=== PATIENT | male | born 1975 | race Caucasian/White ===

== ENCOUNTER 2022-12-16 13:09 | Outpatient (OUT) | payer OTHER, SELFPAY ==
--- NOTE | 2022-12-16 13:25 | XR_ITS ---
The [place] [id number] Patient Name: JENNA BARRERA MRN: [id number] date: 1975 Sex: M Assigned Patient Location: [facility] Current Patient Location: [facility] Accession/Order Number: [id number] Exam Date: 12/16/2022 13:35 Report Date: 12/16/2022 13:56 At the request of: RUSTY BURR Procedure: XR ankle LT min 3V PROCEDURE: XR ankle LT min 3V HISTORY: Left Ankle Injury left ankle and lower leg pain and hematoma after stepping in a hole. COMPARISON: None. FINDINGS: BONES:No fracture, acute abnormality, or significant arthropathy. SOFT TISSUES:Moderate lateral soft tissue swelling. EFFUSION:None visible. OTHER: Negative. IMPRESSION: 1. No acute bone abnormality. 2. Lateral swelling suggesting soft tissue injury. Electronically authenticated by: LYNNE GONZALEZ Date: 12/16/2022 13:56
--- NOTE | 2022-12-16 13:27 | XR_ITS ---
The [address] [address] Patient Name: JENNA BARRERA MRN: [id number] date: 1975 Sex: M Assigned Patient Location: [facility] Current Patient Location: [facility] Accession/Order Number: [id number] Exam Date: 12/16/2022 13:35 Report Date: 12/16/2022 14:02 At the request of: RUSTY BURR Procedure: XR tibia fibula LT 2V PROCEDURE: XR tibia fibula LT 2V HISTORY: Left Ankle Injury COMPARISON: None. FINDINGS: BONES:No fracture, acute abnormality, or significant arthropathy. SOFT TISSUES:Prominent soft tissue swelling lateral to the ankle. EFFUSION:None visible. OTHER: Negative. IMPRESSION: 1. Swelling lateral to the left ankle suggesting soft tissue injury. 2. No acute bone abnormality. Electronically authenticated by: LYNNE GONZALEZ Date: 12/16/2022 14:02
== END 2022-12-16 13:10 ==
PROVIDERS: Visit Provider Nurse Practitioner Family
DX: S99.912A Unspecified injury of left ankle, initial encounter (principal)
CPT/HCPCS: 73590; 73610

== ENCOUNTER 2022-12-31 10:12 | Outpatient (OUT) | payer OTHER, SELFPAY ==
--- NOTE | 2022-12-31 10:22 | MR_ITS ---
The [place] [id number] Patient Name: JENNA BARRERA MRN: [id number] date: 1975 Sex: M Assigned Patient Location: [facility] Current Patient Location: [facility] Accession/Order Number: [id number] Exam Date: 12/31/2022 10:45 Report Date: 12/31/2022 12:53 At the request of: RUSTY BURR Procedure: MR ankle LT wo con EXAM: MR ankle LT wo con HISTORY: Left ankle sprain S93.402A COMPARISON: Left ankle MRI 12/16/2022. TECHNIQUE: Multi planar, multisequence MR imaging of the left ankle without contrast Findings: Bones and cartilage: No acute fracture or malalignment. No focal bone marrow edema. No articular erosions. No osteochondral abnormality. Muscles and tendons: No abnormal signal within the visualized musculature. The Achilles, anterior, medial and lateral tendons about the ankle are intact. No significant tendinosis or tenosynovitis. Ligaments: The medial and lateral ligaments about the ankle are intact. The Lisfranc ligament is intact. Fat signal persist within the sinus Tarsi. Miscellaneous: No joint effusion. The plantar fascia is not thickened. Within the subcutaneous fat of the lateral ankle caudal to the lateral malleolus is a T1 and T2 hyperintense focal fluid collection measuring approximately 3.3 x 0.7 x 1.8 cm and likely representing a hematoma. IMPRESSION: 1. Subcutaneous hematoma about the lateral aspect of the ankle. 2. No acute fracture or malalignment. Electronically authenticated by: TATYANA GRAHAM Date: 12/31/2022 12:53
== END 2022-12-31 10:13 ==
LOC: RAD 10:12
PROVIDERS: Visit Provider Nurse Practitioner Family
DX: S93.402A Sprain of unspecified ligament of left ankle, initial encounter (principal)
CPT/HCPCS: 73721

== ENCOUNTER 2023-01-27 06:50 | Outpatient (RCR) | payer OTHER, SELFPAY | END 2023-02-05 13:28 | disposition home or self-care (01) | LOC: PT 06:50 | PROVIDERS: Visit Provider Nurse Practitioner Family | DX: S93.402D Sprain of unspecified ligament of left ankle, subsequent encounter (principal) | CPT/HCPCS: 97010; 97110; 97112; 97161 ==

== ENCOUNTER 2023-08-25 13:24 | Outpatient (OUT) | payer OTHER, SELFPAY ==
--- NOTE | 2023-08-25 | XR_ITS ---
[address] [address] Patient Name: JENNA BARRERA MRN: [id number] date: 1975 Sex: M Assigned Patient Location: [facility] Current Patient Location: [facility] Accession/Order Number: [id number] Exam Date: 08/25/2023 13:35 Report Date: 08/25/2023 14:40 At the request of: MANOJ SINGH Procedure: XR ankle LT min 3V PROCEDURE: XR ankle LT min 3V COMPARISON: 12/16/2022 HISTORY: LEFT ANKLE PAIN FINDINGS: BONES:No fracture, acute abnormality, or significant arthropathy. SOFT TISSUES:Negative. No visible soft tissue swelling. EFFUSION:None visible. OTHER: Negative. XR/XR ankle LT min 3V IMPRESSION: No acute radiographic abnormality Electronically authenticated by: [place] ANNA Date: 08/25/2023 14:40
== END 2023-08-25 13:25 | disposition home or self-care (01) ==
LOC: RAD 13:25
PROVIDERS: Visit Provider Podiatrist Foot & Ankle Surgery
DX: S93.402A Sprain of unspecified ligament of left ankle, initial encounter (principal)
CPT/HCPCS: 73610

== ENCOUNTER 2023-09-03 14:20 | Outpatient (OUT) | payer OTHER, SELFPAY ==
--- NOTE | 2023-09-03 14:27 | MR_ITS ---
The [address] [address] Patient Name: JENNA BARRERA MRN: [id number] date: 1975 Sex: M Assigned Patient Location: MRI Current Patient Location: MRI Accession/Order Number: [id number] Exam Date: 09/03/2023 14:45 Report Date: 09/04/2023 13:23 At the request of: DAMIAN WATKINS Procedure: MR ankle LT wo con HISTORY: Pain along the posterior and lateral aspect of the left ankle since an injury on 12/16/2022. Sprain of left ankle. MR ankle LT wo con: 09/03/2023 2:45 PM EST COMPARISON: MRI left ankle 12/31/2022 and radiographs left ankle 08/25/2023. TECHNIQUE: Multiplanar, multisequence MRI images of the ankle were obtained without contrast. FINDINGS: A few images are slightly degraded by motion artifact. LIGAMENTS: The anterior talofibular ligament appears thickened and of low signal intensity. The calcaneofibular ligament also appears thickened and of low signal intensity. The posterior talofibular ligament and distal tibiofibular ligaments appear within normal limits. The deltoid ligament complex appears within normal limits. TENDONS: No significant tendinopathy, tendon tear, or tenosynovitis is seen. SINUS TARSI AND TARSAL TUNNEL: No space-occupying mass is seen in the tarsal tunnel or the sinus tarsi. BONES AND JOINTS: The bone marrow signal intensity is age appropriate. No unstable osteochondral defect of the tibiotalar joint is identified. PLANTAR FASCIA: There is no abnormal thickening or abnormal signal intensity of the plantar fascia and there is no surrounding soft tissue edema to suggest plantar fasciitis. SOFT TISSUES: There has been resolution of the soft tissue hematoma and soft tissue swelling previously seen along the lateral aspect of the ankle since the prior MRI. MR/MR ankle LT wo con IMPRESSION: 1. No acute abnormality of the ankle is seen. 2. There is evidence of the sequela of prior grade 2-3 sprains and subsequent scarring in the region of the anterior talofibular ligament and calcaneofibular ligament. Electronically authenticated by: KRISTAL RODRIGUEZ Date: 09/04/2023 13:23
--- OUTSIDE RECORDS SUMMARY | 2023-09-03 14:30 | XMS_ITS | CCD ---
Author Name Unknown Address [address] [place] [address] Organization [facility] Care Team Providers Care Rope Maker Name Role Phone LLOYD Lujan Attending Provider [phone] Katie Lujan Attending Unavailable Katie Lujan Admitting Unavailable Katie Lujan Unavailable Medications Current Medications Medication Drug Class(es) Dates Sig (Normalized) Sig (Original) phenazopyridine hydrochloride 200 mg oral tablet (3 sources) Start: 06-29-2023 take 1 tablet by mouth every eight hours Pyridium 200 MG 1 tablet after meals Orally Three times a day for 2 day(s) Jun, Active tamsulosin hydrochloride 0.4 mg oral capsule (3 sources) alpha-Adrenergic Fercho Start: 06-29-2023 take 1 capsule by mouth once daily Flomax 0.4 MG 1 capsule, take 30 min after same meal Orally Once a day for 7 days Jun, Active Problems Problem Classification Problem Date Documented Da te Episodic/Chronic Genitourinary symptoms and ill-defined conditions (2 sources) Dysuria; Translations: [Frequency of micturition] Episodic Unclassified (1 source) Frequency of micturition; Translations: [Frequency of micturition] Onset: 06-29-2023 Results Test Name Value Interpretation Reference Range Facil ity Urinalysis - AUTOMATEDon Appearance (U) clear [employer] Other Bilirubin Ql (U) Negative [employer] Other Color (U) yellow [facility] Other Glucose Ql (U) Negative [employer] Other Hemoglobin Ql (U) Negative [employer] Other Ketones Ql (U) Negative [employer] Other Leukocyte esterase Test strip Ql (U) Negative [facility] Other Nitrite Ql (U) Negative [employer] Other pH (U) 5.5 [pH] [facility] Other Protein Ql (U) Negative [employer] Other Specific gravity (U) [Rel density] 1.020 [facility] Other Urobilinogen (U) [Mass/Vol] 0.2 mg/dL [facility] Other Urinalysis - AUTOMATED [facility] Other Urine Cultureon 06-29-2023 Bacteria identified Cx Nom (U) No Growth 2 Days PERFORMED BY: [place] [address] PATHOLOGIST BUDGET AND POLICY ANALYST ALISSA MODI M.D. [facility] Comment on above: Performed By: #### C UU #### [address] Vital Signs Date Time Vital Sign Value Performing Clinician Facility 06-29-2023 17:45-0500 Body temperature 98.2 [degF] Katie Lujan Other [facility] Other 06-29-2023 17:45-0500 Body weight 104.33 kg Katie Lujan Other [facility] Other 06-29-2023 17:45-0500 Diastolic blood pressure 93 mm[Hg] Katie Lujan Other [facility] Other 06-29-2023 17:45-0500 Respiratory rate 18 /min Katie Lujan Other [facility] Other 06-29-2023 17:45-0500 SaO2% (BldA) [Mass fraction] 98 % Katie Lujan Other [facility] Other 06-29-2023 17:45-0500 Systolic blood pressure 141 mm[Hg] Katie Lujan Other [facility] Other Encounters Encounter Date Encounter Type Care Provider Facility Start: 07-15-2023 End: 07-15-2023 ambulatory Katie Lujan Other [facility] Other Start: 07-15-2023 Telephone encounter Katie Lujan [facility] Start: 07-02-2023 End: 07-02-2023 ambulatory Facility:[facility] Start: 07-02-2023 Telephone encounter Katie Lujan [facility] Start: 06-29-2023 End: 06-29-2023 ambulatory Katie Lujan Facility:[facility] Start: 06-29-2023 End: 06-29-2023 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 Katie Lujan Work Phone: [facility] [place] Work Phone: Start: 06-29-2023 End: 06-29-2023 ambulatory Katie Lujan Other [facility] Other Start: 06-29-2023 Office outpatient ne w 20 minutes Katie Lujan [facility] [place] Plan of Treatment Date Care Activity Detail Author Start: 06-29-2023 Bacteria identified in Urine by Culture [facility] Payers Date Payer Category Payer [facility] [id number] 2023 Self-pay 2023 Unknown [id number] Unknown [id number] Social History Date Type Detail Facility Tobacco smoking status NHIS Unknown if ever smoked [facility] Other Start: 1975 Sex Assigned At Male F [facility] Sex Assigned At Sex Assigned At Bir th [facility] Other Evaluation note 06-29-2023 Note Date & Type Note Facility 06-29-2023 Evaluation note Encounter Date Diagnosis Assessment Notes Jun, Dysuria (ICD-10 - R30.0) Jun, Urinary frequency (ICD-10 - R35.0) urine cx is low suspicion for infection, will send for cx to r/o UTI and contact pt with results. pt is low risk for STIs and declines STI testing today. clinical presentation is suspicious of prostate pathology, differentials include BPH or prostatitis. pt does not appear acutely ill. he does have a history of prostatitis in his remote past, but denies any similar symptoms today. I will start treatment with flomax and pyridium and refer to urology for further evaluation. pt should continue to push fluids. advised pt to seek immediate evaluation if he experiences any fevers, worsening abdominal pain, inability to urinate, or other emergent symptoms. [facility] Other Evaluation note Note Date & Type Note Facility Evaluation note [facility]: Evaluation note Note Date & Type Note Facility Evaluation note No Information Located Within [facility] [employer] Other Reason for Referral Reason *FU 07/07 Question able BPH versus Prostatitis Diagnosis 1 Urinary frequency (R 35.0) Referral Organization [facility] Referring Provider First Name Katie Referring Provider Last Name Lujan Referring Provider Specialty Nurse Pract itioner Referred Organization [facility] Referred Provider Ayan Lucas Referred Address [address],[place], [place],[address] Referred Provider Specialty Urology Referral Priority Routine General Notes Vikram Medina 06/30 09:40:25 AM > Referral received, attachments made and referral faxed to Dr. Lucas are [facility]. Summary Purpose Family History No Family History Records FoundNo Family History Records Found Advance Directives No Advanced Directives Records FoundNo Advanced Directives Records Found Additional Source Comments Care Teams (unrecognized sec tion and content) Team Status: Inactive Member Role Status Dates Katie Lujan NP Attending Provider Active Goals (unrecognized section and content) Goals may be documented in a n alternate sectionNo InformationNo InformationNo Information REASON FOR VISIT (unrecogniz ed section and content) POSSIBLE UTINo InformationUR OLOGY REFERRAL UPDATE (unrecognized sect ion and content) No Status Records FoundNo Status Records Found INFORMATION SOURCE (unrecogn ized section and content) DATE CREATED AUTHOR 07/03/2023 [facility] DATE CREATED AUTHOR AUTHOR'S ORGANIZ ATION 07/05/2023 [facility] FOR RECORDS PERTAINING TO PATIENTS WHO ARE OR HAVE BEEN ENROLLED IN A CHEMICAL DEPENDENCY/SUBSTANCEABUSE PROGRAM, SOME INFORMATION MAY BE OMITTED. This clinical summary was aggregated from multiple sources. Caution should be exercised in using it in the provision of clinical care. This summary normalizes information from multiple sources, and as a consequence, information in this document may materially change the coding, format and clinical context of patient data. In addition, data may be omitted in some cases. CLINICAL DECISIONS SHOULD BE BASED ON THE PRIMARY CLINICAL RECORDS. [email or web address] [facility]. provides no warranty or guarantee of the accuracy or completeness of information in this document.
== END 2023-09-03 14:21 | disposition home or self-care (01) ==
LOC: MRI 14:21
PROVIDERS: Visit Provider Physician Assistant
DX: S93.402A Sprain of unspecified ligament of left ankle, initial encounter (principal)
CPT/HCPCS: 73721

== ENCOUNTER 2024-07-12 12:22 | Outpatient (OUT) | payer OTHER, SELFPAY ==
--- NOTE | 2024-07-12 12:29 | ECG_ITS ---
The [facility] Test Date: 2024-07-12 Pat Name: JENNA BARRERA Department: Room: - Gender: Male Internal Medicine Nurse: : 1975 Requested By: MANOJ SINGH Order Number: [id number] Reading MD: JESSU WHITTINGTON Measurements Intervals [place] Rate: 95 P: 48 WA: 165 QRS: 17 QRSD: 113 T: 47 QT: 341 QTc: 430 Interpretive Statements SINUS RHYTHM MODERATE INTRAVENTRICULAR CONDUCTION DELAY [110+ ms QRS DURATION] No previous ECG available for comparison Electronically Signed On 07-12-2024 14:56:38 EST by JESUS WHITTINGTON
--- OUTSIDE RECORDS SUMMARY | 2024-07-12 12:37 | XMS_ITS | CCD ---
Author Organization [facility] Care Team Providers Care Palaeontologist Name Role Phone LLOYD Lujan Attending Provider Katie Lujan Attending Unavailable Katie Lujan Admitting [...] ity Urinalysis - AUTOMATEDon Appearance (U) clear [email or web address] Other Bilirubin Ql (U) Negative [employer] Other Color (U) yellow [facility] Other Glucose Ql (U) Negative [email or web address] Other Hemoglobin Ql (U) Negative [employer]clo Other Ketones Ql (U) Negative [email or web address] Other Leukocyte esterase Test strip Ql (U) Negative [facility] Other Nitrite Ql (U) Negative [email or web address] Other pH (U) 5.5 [pH] [facility] Other Protein Ql (U) Negative [email or web address] Other Specific gravity (U) [Rel density] 1.020 [facility] Other Urobilinogen (U) [Mass/Vol] 0.2 mg/dL [facility] Other Urinalysis - AUTOMATED [facility] Other Urine Cultureon 06-29-2023 Bacteria identified Cx Nom (U) No Growth 2 Days PERFORMED BY: [place] [address] PATHOLOGIST SPAGHETTI PRESS HELPER ALISSA MODI M.D. [facility] Comment on above: Performed By: #### C UU #### [facility] [address] [place] [address] Vital Signs Date Time Vital Sign Value Performing Clinician Facility 06-29-2023 17:45-0500 Body temperature 98.2 [degF] Katie Uljan Other [facility] Other 06-29-2023 17:45-0500 Body weight 104.33 kg Katie Lujan Other [facility] Other 06-29-2023 17:45-0500 Diastolic blood pressure 93 mm[Hg] Katie Lujan Other [facility] Other 06-29-2023 17:45-0500 Respiratory rate 18 /min Katie Lujan Other [facility] Other 06-29-2023 17:45-0500 SaO2% (BldA) [Mass fraction] 98 % Katie Lujan Other [facility] Other 06-29-2023 17:45-0500 Systolic blood pressure 141 mm[Hg] Katie Lujan Other [facility] Other Encounters Encounter Date Encounter Type Care Provider Facility Start: 07-15-2023 End: 07-15-2023 ambulatory Katie Lujan Other [facility] Other Start: 07-15-2023 Telephone encounter Katie Lujan [facility] Start: 07-02-2023 End: 07-02-2023 ambulatory Facility:[facility] Start: 07-02-2023 Telephone encounter Katie Lujan [facility] [address] Start: 06-29-2023 End: 06-29-2023 ambulatory Katie Lujan Facility:[facility] Start: 06-29-2023 End: 06-29-2023 Departed Referred BANQUET STEWARD Katie Lujan Work Phone: [facility] [place] Work Phone: Start: 06-29-2023 End: 06-29-2023 ambulatory Katie Lujan Other [facility] Other Start: 06-29-2023 Office outpatient ne w 20 minutes Katie Lujan [facility] [place] Plan of Treatment Date Care Activity Detail Author Start: 06-29-2023 Bacteria identified in Urine by Culture [facility] Payers Date Payer Category Payer [facility] [id number] 2023 Self-pay 2023 Unknown [id number] Unknown [id number] Social History Date Type Detail Facility Tobacco smoking status NHIS Unknown if ever smoked [facility] Other Start: 1975 Sex Assigned At Male F [facility] Sex Assigned At Sex Assigned At Bir th [facility] Other Evaluation note 06-29-2023 Note Date & [...] inability to urinate, or other emergent symptoms. [facility] Other Evaluation note Note Date & Type Note Facility Evaluation note No assessment information [facility] Work Phone: Evaluation note Note Date & Type Note Facility Evaluation note No Information [address] Other Reason for Referral Reason *FU 07/07 Question able BPH versus Prostatitis Diagnosis 1 Urinary frequency (R 35.0) Referral Organization [facility] Referring Provider First Name Katie Referring Provider Last Name Lujan Referring Provider Specialty Nurse Pract itioner Referred Organization [facility] Referred Provider Ayan Lucas Referred Address [address] [place],[address] Referred Provider Specialty Urology Referral Priority Routine [...] section and content) DATE CREATED AUTHOR 07/03/[address] [facility] DATE CREATED AUTHOR AUTHOR'S ORGANIZ ATION 07/05/2023 [facility] FOR RECORDS PERTAINING TO PATIENTS WHO [...] BE BASED ON THE PRIMARY CLINICAL RECORDS. [employer] provides no warranty or guarantee of the accuracy or completeness of information in this document.
--- NOTE | 2024-07-12 13:01 | P.GSHP_ITS ---
History of Present Illness History of Present Illness Chief complaint: left ankle instability Narrative: Patient presents for presurgical testing. The patient reports left ankle pain due to a work-related injury. He states he has intermittent ankle pain which is worse after long periods of time standing. He does take Tylenol as needed to help with his discomfort. He denies numbness, tingling, weakness, or any other complaints. Review of Systems ROS Narrative REVIEW OF SYSTEMS: Negative except as stated in HPI, ten or more systems reviewed. Constitutional: No fever, chills, weakness ENT: No sore throat or epistaxis Cardiovascular: No edema, chest pain, palpitations, or activity intolerance Respiratory: No shortness of breath, cough, or wheezing Gastrointestinal: No abdominal pain, constipation, diarrhea, or vomiting Genitourinary: No dysuria or hematuria Neurological: No numbness, tingling, weakness, or headache Psychiatric: No mood changes PFSH PFS Medical History (Updated 07/12/24 @ 13:04 by Caitlin Ron NP) Ankle instability ?M25.373 - Other instability, unspecified ankle (ICD-10) Ankle sprain ?S93.409A - Sprain of unspecified ligament of unspecified ankle, initial encounter (ICD-10) Anxiety ?F41.9 - Anxiety disorder, unspecified (ICD-10) Surgical History (Updated 07/12/24 @ 12:42 by Caitlin Ron NP) History of myringotomy ?Z98.890 - Other specified postprocedural states (ICD-10) Family History (Updated 07/12/24 @ 12:42 by Caitlin Ron NP) Other Pulmonary fibrosis Social History (Updated 07/12/24 @ 12:38 by Caitlin Ron NP) Within the past year, how often did you have a drink containing alcohol: monthly or less Smoking status: Former smoker Non-prescribed substance use: denies use Previous occupational history: Service Superintendent Highest level of school completed/degree received: high school graduate Meds Home Medications and Allergies Home Medications ?Medication ?Instructions ?Recorded ?Confirmed ?Type acetaminophen 325 mg capsule 650 mg PO Q6H PRN pain 07/12/24 07/12/24 History cholecalciferol (vitamin D3) 25 25 mcg PO DAILY 07/12/24 07/12/24 History mcg (1,000 unit) capsule multivitamin (Daily Multi-Vitamin 1 tab PO DAILY 07/12/24 07/12/24 History tablet) vitamin B complex (Complex B-100 1 tab PO DAILY 07/12/24 07/12/24 History tablet,extended release) Allergies Allergy/AdvReac Type Severity Reaction Status Date / Time No Known Drug Allergies Allergy Verified 07/12/24 12:37 Exam Narrative Exam Narrative: Constitutional: Awake, alert, comfortable, well-appearing, nontoxic, interactive, vital signs as charted Head: Normocephalic, atraumatic Neck: Supple, normal appearance, normal range of motion, no meningeal signs, no lymphadenopathy Respiratory: No respiratory distress, breath sounds clear Cardiovascular: Regular rate and rhythm, strong and regular heart tones Musculoskeletal: Normal gait, no swelling or edema, diffuse left ankle tend erness with palpation, pain with range of motion, good capillary refill, sensation intact Skin: No rashes or induration, no lesions, only visible skin inspected Neuro: No neurological deficits, normal sensation Psychiatric: Oriented ?3, normal affect Assessment and Plan Assessment and Plan (1) Ankle sprain: Qualifiers: Laterality: left (2) Ankle instability: Plan Left ankle arthroscopy, lateral ankle stabilization, peroneal debridement scheduled with Dr. Lebron July 25, 2024.
== END 2024-07-12 12:23 | disposition home or self-care (01) ==
LOC: PST 12:24
PROVIDERS: Visit Provider Podiatrist Foot & Ankle Surgery
DX: Z01.810 Encounter for preprocedural cardiovascular examination (principal); Z01.818 Encounter for other preprocedural examination; M25.372 Other instability, left ankle; S93.492A Sprain of other ligament of left ankle, initial encounter
CPT/HCPCS: 93005; G0463

== ENCOUNTER 2024-07-25 06:02 | Day surgery (SDC) | payer OTHER, SELFPAY ==
[2024-07-12 12:54] VITALS: BP 149/84; PULSE 96; TEMP 36.5; O2SAT 98; BMI 31.5
[2024-07-25] VITALS (8 sets, daily range): BP systolic 131–147; BP diastolic 81–89; PULSE 82–101; TEMP 36.1–36.5; O2SAT 93–97; BMI 30.1
--- OUTSIDE RECORDS SUMMARY | 2024-07-25 06:04 | XMS_ITS | CCD ---
Author Organization [facility] Care Team Providers [employer] Name Role Phone LLOYD Lujan Attending Provider [...] ity Urinalysis - AUTOMATEDon Appearance (U) clear [employer] Other Bilirubin Ql (U) Negative [employer] Other Color (U) yellow [facility] Other Glucose Ql (U) Negative [employer] Other Hemoglobin Ql (U) Negative [employer] Other Ketones Ql (U) Negative [employer] Other Leukocyte esterase Test strip Ql (U) Negative [facility] Other Nitrite Ql (U) Negative [employer] Other pH (U) 5.5 [pH] [facility] Other Protein Ql (U) Negative [employer] Other Specific gravity (U) [Rel density] 1.020 [facility] Other Urobilinogen (U) [Mass/Vol] 0.2 mg/dL [facility] Other Urinalysis - AUTOMATED [facility] Other Urine Cultureon 06-29-2023 Bacteria identified Cx Nom (U) No Growth 2 Days PERFORMED BY: [place] [address] PATHOLOGIST [employer]ING SUPERVISOR ALISSA MODI M.D. [facility] Comment on above: Performed By: #### C UU #### [facility] [address] [place] [address] Vital Signs Date Time Vital Sign Value Performing Clinician Facility 06-29-2023 17:45-0500 Body temperature 98.2 [degF] Katie Lujan Other [facility] Other 06-29-2023 17:45-0500 Body weight 104.33 kg Katie Lujan Other [facility] Other 06-29-2023 17:45-0500 Diastolic blood pressure 93 mm[Hg] Katie Lujan Other [facility] Other 06-29-2023 17:45-0500 Respiratory rate 18 /min Katie Lujan Other [facility] Other 06-29-2023 17:45-0500 SaO2% (BldA) [Mass fraction] 98 % Katie Lujan Other [facility] Other 06-29-2023 17:45-0500 Systolic blood pressure 141 mm[Hg] Katie Lujan Other [facility] Other Encounters Encounter Date Encounter Type Care Provider Facility Start: 07-15-2023 End: 07-15-2023 ambulatory Katie Lujan Other [facility] Other Start: 07-15-2023 Telephone encounter Katie Lujan [facility] Start: 07-02-2023 End: 07-02-2023 ambulatory Facility:[facility] Start: 07-02-2023 Telephone encounter Katie Lujan [facility] [address] Start: 06-29-2023 End: 06-29-2023 ambulatory Katie Lujan Facility:[facility] Start: 06-29-2023 End: 06-29-2023 Departed Referred TELETYPE INSTALLER Katie Lujan Work Phone: [facility] Work Phone: Start: 06-29-2023 End: 06-29-2023 ambulatory Katie Lujan Other [facility] Other Start: 06-29-2023 Office outpatient ne w 20 minutes Katie Lujan [facility] Plan of Treatment Date Care Activity Detail Author Start: 06-29-2023 Bacteria identified in Urine by Culture [facility] Payers Date Payer Category Payer [facility] [id number] 2023 Self-pay 2023 Unknown [id number] Unknown [id number] Social History Date Type Detail Facility Tobacco smoking status NHIS Unknown if ever smoked [facility] Other Start: 1975 Sex Assigned At Male F [facility] Sex Assigned At Sex Assigned At Bir th [facility] Other Evaluation note 06-29-2023 Note Date & [...] inability to urinate, or other emergent symptoms. [facility] Other Evaluation note Note Date & Type Note Facility Evaluation note No assessment information availa [facility] Work Phone: Evaluation note Note Date & Type Note Facility Evaluation note No Information [email or web address] Other Reason for Referral Reason *FU 07/07 Question able BPH versus Prostatitis Diagnosis 1 Urinary frequency (R 35.0) Referral Organization [facility] Referring Provider First Name Katie Referring Provider Last Name Lujan Referring Provider Specialty Nurse Pract itioner Referred Organization [facility] Referred Provider Ayan Lucas Referred Address [address] [place],[address] Referred Provider Specialty Urology Referral Priority Routine [...] section and content) DATE CREATED AUTHOR 07/03/2023 [facility] DATE CREATED AUTHOR AUTHOR'S ORGANIZ ATION 07/05/2023 [facility] FOR RECORDS PERTAINING TO PATIENTS WHO [...] BE BASED ON THE PRIMARY CLINICAL RECORDS. [employer] provides no warranty or guarantee of the accuracy or completeness of information in this document.
[2024-07-25 06:15] LABS: Basophils Percent Auto 0.3 % (0.2-2.0); Eosinophils Absolute Auto 0.1 10^3/uL (0.0-0.7); Eosinophils Percent Auto 1.6 % (0.9-7.0); Hematocrit 46.7 % (42.0-54.0); Immature Granulocytes Abs Auto 0.01 10^3/uL (0.00-0.03); Immature Granulocytes Pct Auto 0.2 % (0.0-0.5); Lymphocytes Absolute Auto 2.3 10^3/uL (1.2-3.8); Lymphocytes Percent Auto 39.9 % (20.5-60.0); Mean Corpuscular HGB Conc 34.3 g/dL (29.9-35.2); Mean Corpuscular Hemoglobin 28.6 pg (25.9-34.0); Mean Corpuscular Volume 83.5 fL (80.0-94.0); Mean Platelet Volume 7.9 fL (9.5-13.5); Monocytes Absolute Auto 0.6 10^3/uL (0.3-0.8); Neutrophils Absolute Auto 2.8 10^3/uL (1.4-6.5); Platelet Count 319 10^3/uL (150-450); Red Blood Count 5.59 10^6/uL (4.70-6.10); Red Cell Distribution Width 12.1 % (11.0-15.0); White Blood Count 5.7 10^3/uL (4.0-11.0)
[2024-07-25 06:36] LABS: Glucometer 99 mg/dL (74-106)
[2024-07-25] MEDS: LACTATED RINGER'S SOLUTION 1,000 ML 50 ML IV ×2 (06:50→08:35)
[2024-07-25] MEDS: CEFAZOLIN SODIUM 2 GM/50 ML D5W PREMIX IV (07:46)
--- NOTE | 2024-07-25 07:58 | PC.NURSE ---
07-Final timeout completed (24) Patient placed on monitor and O2 at 2l/min via nc. (26) Left thigh prepped with ChloraPrep per Dr. Ramos. (28) Left abductor canal site landmarked with Ultrasound per Dr. Ramos. Block initiated. (30) Left abductor canal injected. (0732) Block completed. (0733) Patient positioned on right side. Left popliteal site prepped with ChloraPrep per Dr. Ramos. (35) Left popliteal site landmarked with Ultrasound per Dr. Ramos. (0736) Left popliteal injected. (0740) Popliteal block completed. Patient tolerated it well. See posted vital signs.
--- NOTE | 2024-07-25 09:55 | PM.ORONB ---
Brief Operative Note Date of procedure: 07/25/24 Pre-op diagnosis general: Left ankle sprain with instability, impingement and peroneal tendinopathy Post-op diagnosis: other (Left ankle sprain with instability, impingement and peroneal tendon tear) Procedure: Procedure performed: Left ankle arthroscopy, modified Brostr?m Gray lateral ankle stabilization, peroneal tendon repair Indications for procedure: Patient is a 48-year-old male who sustained a left lateral ankle injury while at work and was initially treated nonoperatively. His date of injury was 12/16/2022. He initially was evaluated by occupational health and had an MRI on 12/31/2022. He was eventually referred to me and failed to respond to physical therapy, bracing, NSAIDs such as ibuprofen and meloxicam, shoe and activity modification. He then had another MRI in August 2023 which demonstrated thickening and low signal over the ATFL and CFL consistent with chronic sprain. No osteochondral defect was noted and the peroneal tendons were intact but there was a low-lying muscle belly. We discussed on 09/18/2023 his best course of treatment would be surgical intervention and I educated him the potential risks and benefits as well as postoperative course. Patient wished to proceed with surgical intervention however was delayed substantially by work comp. We recently discussed on the phone that his symptoms really have not changed much but he is having more pain over the lateral ankle posterior to the fibula which upon examination the preoperative holding area was consistent with peroneal tendon pain as well as clicking and popping with circumduction of the foot. I explained that given the delay in treatment due to work comp that he may have developed a peroneal brevis tear so the consent was updated to include possible repair. Further examination in the preoperative holding area he had a frankly positive anterior drawer consistent with chronic instability. Intraoperative findings: Anterior drawer was frankly positive. Arthroscopy revealed significant amount of chronic synovitis and soft tissue impingement including a [place]'s lesion in the anterior lateral aspect of the joint. No osteochondral defect was noted. Peroneal tendons with a significant amount of surrounding synovitis and low-lying brevis muscle belly which extended past the fibular groove. Longitudinal split tear noted within the brevis tendon and extended for 2.5 cm at the level of the fibular groove. Anterior talofibular ligament and calcaneofibular ligament were thick and lax. Procedure in detail: Patient was identified preop holding by myself which time correct side and site were marked and consent was obtained. Regional anesthesia was performed by the anesthesia team and patient was brought back to the operating theater placed on table in supine position. Preoperative antibiotics were started. Left lower extremities prepped and draped in usual sterile technique with thigh tourniquet. Formal timeout was performed. The ankle joint was stressed in anterior drawer and was noted to be frankly positive. The operative extremity was exsanguinated and tourniquet was inflated. Anterior medial and anterior lateral ankle portals were created in standard safe zones with a 15 blade then blunt dissection was taken down to the ankle capsule. Trocar and cannula were placed into the anterior medial portal and the trocar was removed and replaced by an arthroscopic camera. 3.5 mm aggressive shaver was placed into the anterior lateral portal. The shaver was used to remove all chronic impingement and synovitic tissue which included a [place]'s lesion. Then standard examination of the talar dome was performed arthroscopically noting no osteochondral defect. Arthroscopic instrumentation was removed and the portals were closed with skin suture. Then an incision was placed along the posterior aspect of the lateral malleolus coursing over the peroneal tendons to 3 cm past the fibular tip. Combination of sharp and blunt dissection gained access to the superior peroneal retinaculum and tendon sheath which were reflected meticulously. The peroneal tendons were then dislocated from the fibular groove which was of adequate depth. Surrounding synovitis and low-lying muscle belly from the brevis was excised. The longus was inspected and noted to be intact and of normal thickness and appearance. The brevis however had a 2.5 cm longitudinal tear at the level of the fibular groove. The tear was sharply excised and passed the back table to be sent as specimen. The tendon was then repaired with absorbable suture. The tendons were then relocated to the fibular groove and placed to range of motion noting smooth gliding and excursion. The incision was then extended distally along the peroneal tendons and a combination of sharp and blunt dissection over the anterior lateral malleolus was performed to gain access to the anterior talofibular ligament and calcaneofibular ligament which were noted to be very thick and lax. The ligaments were incised from the fibula. Periosteum was then reflected slightly proximally and a rongeur was used to create a trough over the distal tip of the fibula and extending to the anterior surface. Two 3.3 mm suture anchors each with 4 sutures were then placed into the distal fibula accordingly. The distal 2 sutures were placed through the calcaneal fibular ligament while the remaining 6 were placed through the anterior talofibular ligament and extensor retinaculum. All of the sutures were then placed through the periosteum from the distal fibula. The ankle was held in a maximum dorsiflexion and eversion and all of the sutures were tied and cut. Anterior drawer was negative and the ankle was noted to be stable in all planes. Surgical site was irrigated with copious saline. There is superior peroneal retinaculum was then repaired using observable suture in a pants over vest technique while the tendon sheath was repaired as well with observable suture. The incision was then closed in layers and the tourniquet was deflated with a prompt hyperemic response. A dry sterile dressing and multilayer modified [place] compression splint was placed. Patient tolerated procedure and anesthesia well was transferred to the recovery room with vital signs stable and brisk capillary refill to left toes. Postoperative plan: Discharge home under 's care Nonweightbearing for the next week Keep splint clean dry and intact Prescriptions were sent to his pharmacy using my office EMR Follow-up in 1 week to be transition to a cam boot Implants: Medline 3.3 mm suture anchors x2 Anesthesia: regional and General-LMA Surgeon: Anirudh Lebron Estimated blood loss (mL): 10 Pathology: other (Peroneal tendon tear) Condition: stable Disposition: PACU
[2024-07-25 10:44] LABS: Glucometer 117 mg/dL (74-106)
== END 2024-07-25 12:05 | disposition home or self-care (01) ==
PROVIDERS: Anesthesiology; Visit Provider Podiatrist Foot & Ankle Surgery
PROC: (CPT 1464; principal; 2024-07-25 07:30)
DX: M25.372 Other instability, left ankle (principal); S93.402A Sprain of unspecified ligament of left ankle, initial encounter; M25.872 Other specified joint disorders, left ankle and foot; Z87.891 Personal history of nicotine dependence; M76.72 Peroneal tendinitis, left leg; M76.62 Achilles tendinitis, left leg
CPT/HCPCS: 27680; 27698; 29898; 36415; 64445; 64447; 64450; 76942; 82948; 85025; 88304; C1713; J0131; J0690; J1100; J1885; J2250; J2405; J2704; J2795; J3010

== ENCOUNTER 2024-09-12 08:56 | Outpatient (RCR) | payer OTHER, SELFPAY | END 2024-11-08 06:51 | disposition home or self-care (01) | LOC: PT 08:56 | PROVIDERS: Visit Provider Podiatrist Foot & Ankle Surgery | DX: M25.372 Other instability, left ankle (principal); S93.402D Sprain of unspecified ligament of left ankle, subsequent encounter; M76.72 Peroneal tendinitis, left leg; R26.9 Unspecified abnormalities of gait and mobility | CPT/HCPCS: 97110; 97112; 97161; 97530 ==